=== PATIENT | male | born 1985 | race Caucasian/White ===

== ENCOUNTER 2020-02-20 11:56 | Emergency (ER) | payer OTHER ==
[2020-02-20 12:06] VITALS: BP 130/96; PULSE 82; TEMP 98.7; BMI 32.8
[2020-02-20] MEDS ORDERED: PANTOPRAZOLE SODIUM 40 MG in SODIUM CHLORIDE 100 ML IVPB ONE (12:32)
[2020-02-20] MEDS ORDERED: ONDANSETRON 4 MG/2 ML VIAL IVPB ONE (12:33)
[2020-02-20] MEDS ORDERED: SODIUM CHLORIDE 1,000 ML IV STA (12:33)
[2020-02-20] MEDS ORDERED: ONDANSETRON 4 MG/2 ML VIAL ONE (13:04)
[2020-02-20] MEDS ORDERED: PANTOPRAZOLE SODIUM 40 MG VIAL ONE (13:05)
[2020-02-20 13:24] LABS: HEMATOCRIT 52.2 % (35.4-49); HEMOGLOBIN 17.1 GM/dl (11.7-16.9); MCH 29.1 pg (25.7-33.7); MCHC 32.8 g/dl (32.0-35.9); MEAN CELL VOLUME 88.6 fl (80-96); PLATELET COUNT 360 K/MM3 (134-434); RBC 5.88 M/mm3 (4.00-5.60); RDW 12.7 % (11.9-15.9); WHITE BLOOD COUNT 12.3 K/mm3 (4.0-10.8)
[2020-02-20 13:27] LABS: ALBUMIN 4.9 g/dl (3.4-5.0); BILIRUBIN,TOTAL 0.5 mg/dl (0.2-1); CALCIUM 9.7 mg/dl (8.5-10); CREATININE 1.3 mg/dl (0.55-1.3); POTASSIUM 3.9 mmol/L (3.5-5.1); TOT PROT 8.1 g/dl (6.4-8.2)
[2020-02-20] MEDS ORDERED: LOPERAMIDE HCL 1 MG/5 ML UNIT DOSE CUP PO ONE (14:04)
[2020-02-20 14:15] LABS: PLATELET ESTIMATE ADEQUATE
== END 2020-02-20 15:53 | disposition home or self-care (01) ==
LOC: FER 11:56
PROC: 3E033GC Introduction of Other Therapeutic Substance into Peripheral Vein, Percutaneous Approach (ICD-10-PCS; principal; 2020-02-20)
PROC: 3E033GC Introduction of Other Therapeutic Substance into Peripheral Vein, Percutaneous Approach (ICD-10-PCS; 2020-02-20)
PROC: 3E0337Z Introduction of Electrolytic and Water Balance Substance into Peripheral Vein, Percutaneous Approach (ICD-10-PCS; 2020-02-20)
DX: A08.4 Viral intestinal infection, unspecified (principal)
CPT/HCPCS: 36415; 80053; 82272; 83690; 85025; 99284-25